=== PATIENT | female | born 1975 | race Caucasian/White ===

== ENCOUNTER 2017-04-26 20:37 | Emergency (ER) | payer SELFPAY ==
[2017-04-26 21:31] LABS: UA SPECIFIC GRAVITY 1.025 (1.005-1.035); microscopic required? YES; urine erythrocyte 3+ (NEGATIVE)
[2017-04-26 21:33] LABS: BASOPHIL % 0.2 % (0-2); PLATELET COUNT 314 x10^3mcL (130-400); RED CELL DISTRIBUTION WIDTH 12.9 % (11.5-14.5)
[2017-04-26 21:42] LABS: CALCIUM 9.3 mg/dL (8.5-10.1); CARBON DIOXIDE 25.7 mmol/L (21-32); CHLORIDE SERUM 101 mmol/L (98-107); CREATININE SERUM 0.6 mg/dL (0.6-1.0); GFR1 > 60 mL/min; GLUCOSE SERUM 93 mg/dL (74-106); POTASSIUM SERUM 3.4 mmol/L (3.5-5.1); SODIUM SERUM 136 mmol/L (136-145)
[2017-04-26 21:47] LABS: ALBUMIN 3.5 g/dL (3.4-5.0); ALKALINE PHOSPHATASE 64 U/L (46-116); ALT/SGPT 23 U/L (14-59); AST/SGOT 16 U/L (15-37); BILIRUBIN TOTAL 0.2 mg/dL (0.20-1.00); TOTAL PROTEIN, SERUM 7.2 g/dL (6.4-8.2)
[2017-04-26 23:43] VITALS: BP 100/65
== END 2017-04-26 23:43 | disposition home or self-care (01) ==
LOC: ED 20:37
PROVIDERS: Emergency Medicine
DX: O21.9 Vomiting of pregnancy, unspecified (principal); O23.41 Unspecified infection of urinary tract in pregnancy, first trimester; E87.6 Hypokalemia; Z3A.01 Less than 8 weeks gestation of pregnancy
CPT/HCPCS: J0696; J7030

== ENCOUNTER 2017-04-30 22:54 | Emergency (ER) | payer OTHER ==
[2017-05-01 01:37] LABS: BASOPHIL % 0.3 % (0-2); PLATELET COUNT 329 x10^3mcL (130-400)
[2017-05-01 01:45] LABS: CALCIUM 8.9 mg/dL (8.5-10.1); CARBON DIOXIDE 25.2 mmol/L (21-32); CHLORIDE SERUM 102 mmol/L (98-107); CREATININE SERUM 0.6 mg/dL (0.6-1.0); GFR1 > 60 mL/min; GLUCOSE SERUM 92 mg/dL (74-106); POTASSIUM SERUM 3.5 mmol/L (3.5-5.1); SODIUM SERUM 138 mmol/L (136-145)
[2017-05-01 01:49] LABS: ALBUMIN 3.7 g/dL (3.4-5.0); ALKALINE PHOSPHATASE 57 U/L (46-116); ALT/SGPT 23 U/L (14-59); AMYLASE 67 U/L (25-115); AST/SGOT 13 U/L (15-37); BILIRUBIN TOTAL 0.28 mg/dL (0.20-1.00); LIPASE 168 IU/L (73-393); TOTAL PROTEIN, SERUM 7.5 g/dL (6.4-8.2)
[2017-05-01 04:11] VITALS: BP 122/83
== END 2017-05-01 04:11 | disposition home or self-care (01) ==
LOC: ED 22:54
PROVIDERS: Emergency Medicine
DX: O21.0 Mild hyperemesis gravidarum (principal); O20.0 Threatened abortion; Z3A.08 8 weeks gestation of pregnancy; Z88.8 Allergy status to other drugs, medicaments and biological substances
CPT/HCPCS: 83880; J2405; J2765; J7030; J7042; Q0162